=== PATIENT | male | born 1960 | race Caucasian/White ===

== ENCOUNTER 2020-06-23 15:50 | Emergency (ER) | payer OTHER, BC ==
[2020-06-23] MEDS ORDERED: RABIES VACCINE HUMAN 2.5 INTERNATIONAL UNITS/ML VIAL (90675) As Ordered ONE (16:10)
== END 2020-06-23 16:25 | disposition home or self-care (01) ==
LOC: M ED 15:50
DX: Z23 Encounter for immunization (principal); F17.200 Nicotine dependence, unspecified, uncomplicated; Z20.3 Contact with and (suspected) exposure to rabies; F41.9 Anxiety disorder, unspecified; I10 Essential (primary) hypertension; E78.49 Other hyperlipidemia; F43.10 Post-traumatic stress disorder, unspecified

== ENCOUNTER 2020-06-27 13:53 | Emergency (ER) | payer OTHER, BC ==
[2020-06-27] MEDS ORDERED: RABIES VACCINE HUMAN 2.5 INTERNATIONAL UNITS/ML VIAL (90675) As Ordered ONE (14:40)
== END 2020-06-27 14:09 | disposition home or self-care (01) ==
LOC: M ED 13:53
DX: Z20.3 Contact with and (suspected) exposure to rabies (principal); Z23 Encounter for immunization; F33.9 Major depressive disorder, recurrent, unspecified; F41.9 Anxiety disorder, unspecified; E78.5 Hyperlipidemia, unspecified; Z79.899 Other long term (current) drug therapy

== ENCOUNTER 2020-07-04 17:57 | Emergency (ER) | payer OTHER, BC ==
[2020-07-04] MEDS ORDERED: RABIES VACCINE HUMAN 2.5 INTERNATIONAL UNITS/ML VIAL (90675) ONE (19:00)
[2020-07-04] MEDS ORDERED: RABIES VACCINE HUMAN 2.5 INTERNATIONAL UNITS/ML VIAL (90675) As Ordered ONE (19:17)
== END 2020-07-04 19:50 | disposition home or self-care (01) ==
LOC: M ED 17:57
DX: Z23 Encounter for immunization (principal); Z20.3 Contact with and (suspected) exposure to rabies; F17.210 Nicotine dependence, cigarettes, uncomplicated; I10 Essential (primary) hypertension; E78.5 Hyperlipidemia, unspecified; Z79.899 Other long term (current) drug therapy

== ENCOUNTER → 2021-01-10 | Outpatient (CLI) | payer BC, OTHER ==
[~2021-01-10] MED LIST: LISI20TA33 PO; METO1TAB7 PO; OMEP-221 PO; PROAAER10 INH; ROSU40TA4 PO; TIOT18INH INH
== END ==
LOC: M LABSMTC 11:02
PROVIDERS: ATTEND Anesthesiology
DX: Z01.812 Encounter for preprocedural laboratory examination (principal); Z20.822 Contact with and (suspected) exposure to COVID-19

== ENCOUNTER 2021-01-15 11:46 | Day surgery (SDC) | payer OTHER ==
[~2021-01-15] VITALS: Ht 175.3 cm; Wt 83.5 kg
[~2021-01-15 11:46] MED LIST changes: +NS 1,000 ML IV ONE
--- OUTSIDE RECORDS SUMMARY | 2021-01-15 11:52 | CCD ---
Author Author [facility] Organization [facility] Address Unknown Phone Unavailable Support Name Relationship Address Phone [employer] Next Of Kin [address] [place] [address] NEELAM AURELIANO Next Of Kin [id number] [address] [place] Next Of Kin Unknown Unavailable Re-disclosure Warning The records that you are about to access may contain information from federally-assisted alcohol or drug abuse programs. If such information is present, then the following federally mandated warning applies: This information has been disclosed to you from records protected by federal confidentiality rules (42 CFR part 2). The federal rules prohibit you from making any further disclosure of this information unless further disclosure is expressly permitted by the written consent of the person to whom it pertains or as otherwise permitted by 42 CFR part 2. A general authorization for the release of medical or other information is NOT sufficient for this purpose. The Federal rules restrict any use of the information to criminally investigate or prosecute any alcohol or drug abuse patient.The records that you are about to access may contain highly sensitive health information, the redisclosure of which is protected by Article 27-F of the [facility] Public Health law. If you continue you may have access to information: Regarding HIV / AIDS; Provided by facilities licensed or operated by the [facility] Office of Mental Health; or Provided by the [facility] Office for People With Developmental Disabilities. If such information is present, then the following [facility] mandated warning applies: This information has been disclosed to you from confidential records which are protected by state law. State law prohibits you from making any further disclosure of this information without the specific written consent of the person to whom it pertains, or as otherwise permitted by law. Any unauthorized further disclosure in violation of state law may result in a fine or penitentiary sentence or both. A general authorization for the release of medical or other information is NOT sufficient authorization for further disc losure. Insurance Providers Payer name Policy type / Coverage type Policy ID Covered democrat ID Covered democrat's relationship to alanis Policy Alanis Plan Information 'S ADMINISTRATION [id number] SP [id number] [facility] FEDERAL [employer]PLOYEE PROGRAM [id number] SP [id number] [facility] [employer]EE PROGRAM [id number] SP [id number] 'S ADMINISTRATION [id number] SP [id number] [facility] [id number] S [id number] Problems, Conditions, and Diagnoses Code Display Name Description Problem Type Effective Dates Data Source(s) [id number] Essential hypertension Essential hypertension Problem 12/30/2020 12:00:00 AM EST [facility] ([facility]) Results ID Date Data Source [id number] 01/10/2021 09:40:00 AM EST [facility] Name Value Range Interpretation Code Description Data Jeanie rce(s) Supporting Document(s) SARS coronavirus 2 RNA Not Detected [facility] [place] This lab was ordered by [facility] and reported by [facility]. Procedure Vital Signs ID Date Data Source UNK Name Value Range Interpretation Code Description Data Source(s) Body surface area Derived from formula 2.01 m2 2.01 m2 [facility] ([facility]) Body weight 85.334 kg 85.334 kg [facility] ([facility]) [place] body weight 160 [lb_av] 160 [lb_av] [facility] ([facility]) Body mass index (BMI) [Ratio] 27.8 kg/m2 27.8 k g/m2 [facility] ([facility]) Body weight 188.12 [lb_av] 188.12 [lb_av] [facility] ([facility]) Body height 69 [in_i] 69 [in_i] [facility] ([facility]) 5'9" Diastolic blood pressure 96 mm[Hg] 96 mm[Hg] [facility] ([facility]) Systolic blood pressure 162 mm[Hg] 162 mm[Hg] [facility] ([facility])
--- OUTSIDE RECORDS SUMMARY | 2021-01-15 11:52 | CCD | Continuity of Care Document ---
Author Ahsan Chavira [facility] Organization Unknown Address [address] [place] [address], [address] [place] [address] Phone [phone] Care Team Providers Care Medicaid Analyst Name Role Phone Mo Price M.D. AUTM [phone] Problems Active Problems Provider Date Essential hypertension Pedro Pablo Clay NP Onset: 12/30/2020 Social History Type Date Description Comments Sex Unknown ETOH Use Denies alcohol use Tobacco Use Start: 11/29/90 Patient is a current smoker, smo kes every day 1 PPD Recreational Drug Use Denies Drug Use Allergies, Adverse Reactions, Alerts Description No Known Drug Allergies Medications Active Medications SIG Qnty Indications Ordering Provide r Date Fish Oil 1000mg Capsules 2 by mouth every day Unknown Aspirin 81 Low Dose 81mg Chewtabs 1 by mouth qd Unknown Rosuvastatin Calcium 40mg Tablets once a day Unknown Lisinopril 20mg Tablets 1 tab po qd Unknown Spiriva Respimat 1.25mcg/Act Aeros ol 2 puffs every day Unknown Multivitamin Adult Tablets 1 by mouth every day Unknown Immunizations Description No Information Available Vital Signs Date Vital Result Comment 12/30/2020 9:36am BP Systolic 162 mmHg BP Diastolic 96 mmHg Height 69 inches 5'9" Weight 188.12 lb BMI (Body Mass Index) 27.8 kg/m2 [place] Body Weight 160 lb Weight 85.334 kg BSA (Body Surface Area) 2.01 m2 Results Description No Information Available Procedures Description No Information Available Medical Devices Description No Information Available Encounters Description No Information Available Assessments Date Code Description Provider 12/30/2020 Z86.010 Personal history of colonic poly ps Pedro Pablo Clay NP Plan of Treatment 12/30/2020 - Pedro Pablo Clay NP* Z86.010 Personal history of colonic polyps* Comments:* Patient has had a personal history of colonic polyps and at this point the recommendation is to proceed with a repeat colonoscopy risks as well as benefits have been discussed at length those including but not limited to bleeding infection damage to bowel including perforation and possibly anesthetic complications. Patient understands as well that small lesions/polyps can be missed with increased frequency and is much dependent on colonic prep. The patient agrees to proceed with colonoscopy as recommended. Functional Status Description No Information Available Mental Status Description No Information Available Referrals Refer to Reason for Referral Status Appt Date Chris Prieto D.O. COLONOCSOPY Created [address] [place] [phone] Chris Prieto D.O. SCHEDULE COLONOSCOPY AND EGD Scheduled 12/30/[address] [place] [phone]
[2021-01-15] MEDS ORDERED: LIDOCAINE 2% 100MG/5ML SDV (FOR ANES.) As Ordered ONE (12:50)
[2021-01-15] MEDS ORDERED: propofoL 200 MG/20 ML VIAL As Ordered ONE ×2 (12:50→12:58)
--- NOTE | 2021-01-15 13:12 | ROOR ---
Patient Name: Ahsan Brown Procedure Date: 01/15/2021 12:46 PM Date of : 1960 Age: 60 Room: [facility] Gender: Male Note Status: Finalized Procedure: Colonoscopy Indications: High risk colon cancer surveillance: Personal history of colonic polyps Providers: DO James Reyes MD: [facility], [facility], Admin., Mo Price MD Requesting Provider: Medicines: Propofol per Anesthesia Complications: No immediate complications. Procedure: Pre-Anesthesia Assessment: - Prior to the procedure, a History and Physical was performed, and patient medications and allergies were reviewed. The patient is competent. The risks and benefits of the procedure and the sedation options and risks were discussed with the patient. All questions were answered and informed consent was obtained. Patient identification and proposed procedure were verified by the physician, the nurse, the loan interviewer and the assistant technician in the endoscopy suite. Mental Status Examination: alert and oriented. Airway Examination: normal oropharyngeal airway and neck mobility. Respiratory Examination: clear to auscultation. CV Examination: normal. Prophylactic Antibiotics: The patient does not require prophylactic antibiotics. Prior Anticoagulants: The patient has taken no previous anticoagulant or antiplatelet agents. ASA Grade Assessment: II - A patient with mild systemic disease. After reviewing the risks and benefits, the patient was deemed in satisfactory condition to undergo the procedure. The anesthesia plan was to use monitored anesthesia care (MAC). Immediately prior to administration of medications, the patient was re-assessed for adequacy to receive sedatives. The heart rate, respiratory rate, oxygen saturations, blood pressure, adequacy of pulmonary ventilation, and response to care were monitored throughout the procedure. The physical status of the patient was re-assessed after the procedure. The Colonoscope was introduced through the anus and advanced to the cecum, identified by appendiceal orifice and ileocecal valve. The colonoscopy was performed without difficulty. The patient tolerated the procedure well. Findings: Non-bleeding internal hemorrhoids were found during retroflexion. The hemorrhoids were Grade I (internal hemorrhoids that do not prolapse). Multiple small and large-mouthed diverticula were found in the entire colon. Two flat polyps were found in the sigmoid colon. The polyps were less than 5 mm in size. These polyps were removed with a jumbo cold forceps. Resection and retrieval were complete. Estimated blood loss was minimal. Impression: - Non-bleeding internal hemorrhoids. - Diverticulosis in the entire examined colon. - Two less than 5 mm polyps in the sigmoid colon, removed with a jumbo cold forceps. Resected and retrieved. Recommendation: - Patient has a contact number available for emergencies. The signs and symptoms of potential delayed complications were discussed with the patient. Return to normal activities tomorrow. Written discharge instructions were provided to the patient. - Repeat colonoscopy in 5-10 years for surveillance based on pathology results. - Return to my office at appointment to be scheduled. - Return to physician assignment desk assistant at appointment to be scheduled. Procedure Code(s): --- Professional --- 03089, Colonoscopy, flexible; with biopsy, single or multiple Diagnosis Code(s): --- Professional --- Z86.010, Personal history of colonic polyps K63.5, Polyp of colon K64.0, First degree hemorrhoids K57.30, Diverticulosis of large intestine without perforation or abscess without bleeding CPT copyright 2019 [employer]. All rights reserved. The codes documented in this report are preliminary and upon headmaster/mistress review may be revised to meet current compliance requirements. Chris Prieto DO 01/15/2021 1:11:58 PM Electronically signed by Chris Prieto DO Number of Addenda: 0 Note Initiated On: 01/15/2021 12:46 PM Estimated Blood Loss: Estimated blood loss was minimal.
[2021-01-15 13:40] VITALS: BP 120/89
== END 2021-01-15 13:46 | disposition home or self-care (01) ==
LOC: M OPP 11:46
PROVIDERS: ATTEND Surgery
DX: Z12.11 Encounter for screening for malignant neoplasm of colon (principal); Z86.010 Personal history of colon polyps; K63.5 Polyp of colon; K64.0 First degree hemorrhoids; K57.30 Diverticulosis of large intestine without perforation or abscess without bleeding; I10 Essential (primary) hypertension; E78.5 Hyperlipidemia, unspecified; R12 Heartburn; F41.9 Anxiety disorder, unspecified; F32.9 Major depressive disorder, single episode, unspecified; J44.9 Chronic obstructive pulmonary disease, unspecified; G47.30 Sleep apnea, unspecified; F17.210 Nicotine dependence, cigarettes, uncomplicated; Z79.899 Other long term (current) drug therapy